=== PATIENT | male | born 1945 | race Caucasian/White ===

== ENCOUNTER 2017-12-11 08:11 | Inpatient (IN) | payer MEDICARE, MEDICAID ==
[~2017-12-11] VITALS: Ht 172.7 cm; Wt 98.4 kg
[2017-12-11] VITALS (8 sets, daily range): BP systolic 123–153; BP diastolic 75–91
[2017-12-11] MEDS ORDERED: SODIUM CHLORIDE 0.9% 1,000 ML IV ONE ×3 (08:34→10:11)
[2017-12-11 08:56] LABS: HEMATOCRIT. 41.2 % (42.0-52.0); HEMOGLOBIN. 13.5 g/dL (14.0-18.0); MEAN CORPUSCULAR HEMOGLOBIN 29.7 pg (28.0-32.0); MEAN CORPUSCULAR VOLUME 90.5 fL (80.0-94.0); MEAN PLATELET VOLUME 9.6 fl (7.4-10.4); PLATELET 120 x1000/uL (130-400); RED BLOOD CELL COUNT 4.56 mill/uL (4.7-6.1); RED CELL DISTRIBUTION WIDTH 15.5 % (11.6-14.6)
[2017-12-11] MEDS ORDERED: LEVETIRACETAM 1000MG/100ML 100 ML IV ONE (09:00)
[2017-12-11 09:02] LABS: CHLORIDE 113 mEq/L (98-107)
[2017-12-11 09:07] LABS: ETHANOL BLOOD < 10 mg/dL
[2017-12-11 09:13] LABS: CARBAMAZEPINE < 0.5 ug/mL (4-12); PHENOBARBITAL < 2.1 ug/mL (15.0-40.0)
[2017-12-11 09:52] LABS: CLARITY URINE TURBID (CLEAR); COLOR URINE ORANGE (YELLOW); KETONES URINE NEGATIVE (NEGATIVE); LEUKOCYTE ESTERASE URINE 3+ (NEGATIVE); NITRITE URINE POSITIVE (NEGATIVE); OCCULT BLOOD URINE 3+ (NEGATIVE); PROTEIN URINE 2+ (NEGATIVE); SPECIFIC GRAVITY URINE 1.015 (1.005-1.030)
[2017-12-11 09:59] LABS: PLATELET ESTIMATE SLIGHTLY DECREASED
[2017-12-11] MEDS ORDERED: LEVOFLOXACIN 750MG PREMIX 150 ML IV ONE (10:15)
[2017-12-11 10:17] LABS: *BENZODIAZEPINES SCREEN URINE NEGATIVE (NEGATIVE); *COCAINE SCREEN URINE NEGATIVE (NEGATIVE); METHADONE URINE SCREEN NEGATIVE (NEGATIVE)
[2017-12-11 10:18] LABS: *AMPHETAMINES SCREEN URINE NEGATIVE (NEGATIVE); *BARBITURATES SCREEN URINE NEGATIVE (NEGATIVE); CANNABINOID URINE SCREEN NEGATIVE (NEGATIVE); OPIATES URINE SCREEN NEGATIVE (NEGATIVE); PHENCYCLIDINE URINE SCREEN NEGATIVE (NEGATIVE)
[2017-12-11] MEDS ORDERED: ACETAMINOPHEN 650MG/20.3ML UDC GT PRN (12:30)
[2017-12-11] MEDS ORDERED: IPRATROPIUM/ALBUTEROL 0.5-3(2.5)MG/3ML NEB INH PRN (12:30)
[2017-12-11] MEDS ORDERED: CLONIDINE 0.1MG TABLET PO PRN (12:30)
[2017-12-11] MEDS ORDERED: BISACODYL 5MG TABLET PO PRN (12:30)
[2017-12-11] MEDS ORDERED: DIPHENHYDRAMINE 50MG/ML VIAL IV PRN (12:30)
[2017-12-11] MEDS ORDERED: PIPERACILLIN/TAZ 2.25G PREMIX 50 ML IV SCH (12:30)
[2017-12-11] MEDS ORDERED: BISACODYL 10MG SUPP PR PRN (12:30)
[2017-12-11] MEDS ORDERED: LEVETIRACETAM 500 MG in SODIUM CHLORIDE 0.9% 100 ML IV SCH (12:30)
[2017-12-11] MEDS ORDERED: NITROGLYCERIN 0.4MG TABLET SL SL PRN (12:30)
[2017-12-11] MEDS ORDERED: MAGNESIUM HYDROXIDE 400MG/5ML 30ML UDC PO PRN (12:30)
[2017-12-11] MEDS ORDERED: NA PHOS,M-B/NA PHOS,DI-BA ENEMA 118ML PR PRN (12:30)
[2017-12-11] MEDS ORDERED: HYDROCODONE/ACETAMINOPHEN 5/325MG TABLET PO PRN (12:30)
[2017-12-11] MEDS ORDERED: DEXTROSE 50% WATER 50ML SYRINGE IV PRN (12:30)
[2017-12-11] MEDS ORDERED: ACETAMINOPHEN 650MG SUPP PR PRN (12:30)
[2017-12-11] MEDS ORDERED: ONDANSETRON HCL 4MG/2ML VIAL IV PRN (12:30)
[2017-12-11] MEDS ORDERED: GUAIFENESIN 200MG/10ML SUGAR FREE UDC PO PRN (12:30)
[2017-12-11] MEDS ORDERED: HYDROCODONE/ACETAMINOPHEN 10/325MG TABLET PO PRN (12:30)
[2017-12-11] MEDS ORDERED: DOCUSATE SODIUM 100MG CAPSULE PO PRN (12:30)
[2017-12-11] MEDS ORDERED: LORAZEPAM 2MG/ML CPJ IV PRN ×2 (13:00→14:15)
[2017-12-11] MEDS ORDERED: MAGNESIUM/ALUMINUM HYDROXIDE/SIMETHICONE 30ML UDC PO PRN (13:00)
[2017-12-11] MEDS: INSULIN LISPRO 100 UNITS/ML SUBCUT SCH ×3 (13:00→21:00)
[2017-12-11 13:18] LABS: BG BASE EXCESS -5.2 mmol/L (-2.0-2.0); BG CARBOXYHEMOGLOBIN 0.4 % (0.5-1.5); BG DEOXYHEMOGLOBIN 0.4 % (0.0-5.0); BG FRACTION INSPIRED OXYGEN 100; BG HCO3 ACT 19.8 mmol/L (22.0-26.0); BG METHEMOGLOBIN 0.2 % (0.0-1.5); BG PCO2 36.9 mmHg (35.0-45.0); BG PH 7.348 (7.350-7.450); BG PO2 370.4 mmHg (75.0-100.0); BG SAMPLE SITE LEFT RADIAL; BG TOTAL HEMOGLOBIN 13.1 g/dL (12.0-18.0); BG VENT MODE MASK - NRB
[2017-12-11] MEDS: IPRATROPIUM/ALBUTEROL 0.5-3(2.5)MG/3ML NEB INH SCH ×2 (13:47→20:05)
[2017-12-11] MEDS ORDERED: LEVOFLOXACIN 500MG PREMIX 100 ML IV SCH (14:00)
[2017-12-11 15:32] LABS: D-DIMER 1.85 mg/L FEU (<0.50); PARTIAL THROMBOPLASTIN TIME 27.8 sec (23.4-31.0); PROTHROMBIN TIME 10.8 sec (9.4-11.6)
[2017-12-11 15:48] LABS: CREATINE KINASE MB FRACTION 1.8 ng/mL (0.5-3.6); T4 FREE 1.35 ng/dL (0.76-1.46)
[2017-12-11] MEDS: DEXT 5%/0.45% NACL 1000ML 1,000 ML IV SCH (16:38)
[2017-12-11] MEDS: ENOXAPARIN 40MG/0.4ML SYR SUBCUT SCH (16:38)
[2017-12-11] MEDS: AZTREONAM 1 G in DEXTROSE 5% WATER 50 ML IV SCH (16:39)
[2017-12-11] MEDS: SODIUM CHLORIDE 0.9% INJ 3ML FLUSH IVF SCH ×2 (16:40→21:03)
[2017-12-11] MEDS: BLOOD SUGAR DIAGNOSTIC STRIP TEST SCH ×2 (18:14→20:55)
[2017-12-11] MEDS: VALPROATE SODIUM 500 MG in SODIUM CHLORIDE 0.9% 100 ML IV SCH (18:18)
[2017-12-11] MEDS: BUDESONIDE 0.5MG/2ML NEB HHN SCH (20:06)
[2017-12-11] MEDS: LEVETIRACETAM 500MG PREMIX 100 ML IV SCH (20:55)
[2017-12-12] VITALS (12 sets, daily range): BP systolic 134–156; BP diastolic 72–100
[2017-12-12 00:32] LABS: CREATINE KINASE 36 IU/L (39-308)
[2017-12-12 00:33] LABS: CREATINE KINASE MB FRACTION 1.3 ng/mL (0.5-3.6)
[2017-12-12] MEDS: AZTREONAM 1 G in DEXTROSE 5% WATER 50 ML IV SCH ×2 (01:17→12:56)
[2017-12-12] MEDS: IPRATROPIUM/ALBUTEROL 0.5-3(2.5)MG/3ML NEB INH SCH ×4 (01:57→20:10)
[2017-12-12] MEDS: VALPROATE SODIUM 500 MG in SODIUM CHLORIDE 0.9% 100 ML IV SCH ×2 (06:11→18:11)
[2017-12-12] MEDS: SODIUM CHLORIDE 0.9% INJ 3ML FLUSH IVF SCH ×3 (06:11→21:22)
[2017-12-12 06:32] LABS: BASOPHILS % 0.3 % (0.0-2.0); EOSINOPHILS % 2.3 % (0.0-5.0); HEMATOCRIT. 36.1 % (42.0-52.0); HEMOGLOBIN. 11.8 g/dL (14.0-18.0); MEAN CORPUSCULAR VOLUME 88.7 fL (80.0-94.0); MEAN PLATELET VOLUME 10.1 fl (7.4-10.4); MONOCYTES % 8.9 % (2.0-8.0); NEUTROPHILS % 73.5 % (40.0-76.0); PLATELET 114 x1000/uL (130-400); RED BLOOD CELL COUNT 4.07 mill/uL (4.7-6.1); RED CELL DISTRIBUTION WIDTH 14.9 % (11.6-14.6)
[2017-12-12] MEDS: BLOOD SUGAR DIAGNOSTIC STRIP TEST SCH ×4 (07:30→21:12)
[2017-12-12] MEDS: INSULIN LISPRO 100 UNITS/ML SUBCUT SCH ×4 (08:00→21:00)
[2017-12-12 08:34] LABS: CHLORIDE 117 mEq/L (98-107)
[2017-12-12 08:44] LABS: HDL CHOLESTEROL 34 mg/dL (40-59); LDL CHOLESTEROL 64 mg/dL (5-100)
[2017-12-12] MEDS: AMIODARONE HCL 200 MG TABLET PO SCH (08:52)
[2017-12-12] MEDS: LEVETIRACETAM 500MG PREMIX 100 ML IV SCH (08:52)
[2017-12-12] MEDS: BUDESONIDE 0.5MG/2ML NEB HHN SCH ×2 (09:10→20:10)
[2017-12-12] MEDS: ENOXAPARIN 40MG/0.4ML SYR SUBCUT SCH (09:37)
[2017-12-12] MEDS: LEVOTHYROXINE SODIUM 75MCG TABLET PO SCH (09:37)
[2017-12-12] MEDS ORDERED: LEVOFLOXACIN 250MG PREMIX 50 ML IV SCH (14:00)
[2017-12-12] MEDS: DEXT 5%/0.45% NACL 1000ML 1,000 ML IV SCH (14:40)
[2017-12-12] MEDS: LEVETIRACETAM 500MG/5ML CUP PO SCH (21:13)
[2017-12-13] VITALS (10 sets, daily range): BP systolic 117–151; BP diastolic 64–92
[2017-12-13] MEDS: IPRATROPIUM/ALBUTEROL 0.5-3(2.5)MG/3ML NEB INH SCH ×3 (01:55→13:38)
[2017-12-13] MEDS: AZTREONAM 1 G in DEXTROSE 5% WATER 50 ML IV SCH (02:43)
[2017-12-13] MEDS: SODIUM CHLORIDE 0.9% INJ 3ML FLUSH IVF SCH ×2 (06:18→14:00)
[2017-12-13] MEDS: ACETAMINOPHEN 325MG TABLET PO PRN ×2 (06:19→08:53)
[2017-12-13] MEDS ORDERED: PULM50 HHN (07:19)
[2017-12-13] MEDS ORDERED: AMI2 PO (07:19)
[2017-12-13] MEDS ORDERED: LEVO75TA7 PO (07:20)
[2017-12-13] MEDS ORDERED: VALP250S PO (07:20)
[2017-12-13] MEDS ORDERED: KEPP500 PO (07:20)
[2017-12-13] MEDS ORDERED: LEVO500T2 PO (07:21)
[2017-12-13] MEDS: INSULIN LISPRO 100 UNITS/ML SUBCUT SCH ×3 (07:43→17:33)
[2017-12-13] MEDS: BLOOD SUGAR DIAGNOSTIC STRIP TEST SCH ×3 (07:43→17:33)
[2017-12-13] MEDS: AMIODARONE HCL 200 MG TABLET PO SCH (08:53)
[2017-12-13] MEDS: VALPROATE SODIUM 250MG/5ML UDC PO SCH ×2 (08:53→17:47)
[2017-12-13] MEDS: LEVETIRACETAM 500MG/5ML CUP PO SCH (08:53)
[2017-12-13] MEDS: ENOXAPARIN 40MG/0.4ML SYR SUBCUT SCH (08:54)
[2017-12-13] MEDS: LEVOTHYROXINE SODIUM 75MCG TABLET PO SCH (08:55)
[2017-12-13] MEDS: BUDESONIDE 0.5MG/2ML NEB HHN SCH (09:14)
[2017-12-13 12:45] LABS: BG BASE EXCESS -1.9 mmol/L (-2.0-2.0); BG DEOXYHEMOGLOBIN 17.7 % (0.0-5.0); BG FRACTION INSPIRED OXYGEN 21; BG HCO3 ACT 23.6 mmol/L (22.0-26.0); BG METHEMOGLOBIN 0.2 % (0.0-1.5); BG OXYGEN SATURATION 82.1 % (92.0-98.5); BG OXYHEMOGLOBIN 81.1 % (94.0-97.0); BG PCO2 43.1 mmHg (35.0-45.0); BG PH 7.357 (7.350-7.450); BG PO2 43.1 mmHg (75.0-100.0); BG SAMPLE SITE LEFT RADIAL; BG VENT MODE ROOM AIR
[2017-12-13] MEDS ORDERED: SULFAMETHOXAZOLE/TRIMETHOPRIM 400/80MG TAB PO SCH (13:00)
[2017-12-13] MEDS ORDERED: SULF1TAB48 PO (20:03)
== END 2017-12-13 18:30 | DRG 871 ==
LOC: ER 08:26 → 6WST 10:20 → EDBEDREQ 10:23 → ENRESERV 10:32 → 5EST 12:18
PROVIDERS: ADMIT Family Medicine; ATTEND Family Medicine
PROC: 4A00X4Z Measurement of Central Nervous Electrical Activity, External Approach (ICD-10-PCS; principal; 2017-12-13)
DX: A41.9 Sepsis, unspecified organism (principal); J96.00 Acute respiratory failure, unspecified whether with hypoxia or hypercapnia; E11.22 Type 2 diabetes mellitus with diabetic chronic kidney disease; G35 Multiple sclerosis; I48.2 Chronic atrial fibrillation; J44.1 Chronic obstructive pulmonary disease with (acute) exacerbation; E66.01 Morbid (severe) obesity due to excess calories; F20.9 Schizophrenia, unspecified; N39.0 Urinary tract infection, site not specified; K21.9 Gastro-esophageal reflux disease without esophagitis; D64.9 Anemia, unspecified; N18.9 Chronic kidney disease, unspecified; E78.5 Hyperlipidemia, unspecified; E03.9 Hypothyroidism, unspecified; M19.90 Unspecified osteoarthritis, unspecified site; E78.00 Pure hypercholesterolemia, unspecified; G89.29 Other chronic pain; M10.9 Gout, unspecified; N40.0 Benign prostatic hyperplasia without lower urinary tract symptoms; I12.9 Hypertensive chronic kidney disease with stage 1 through stage 4 chronic kidney disease, or unspecified chronic kidney disease; F31.9 Bipolar disorder, unspecified; G40.909 Epilepsy, unspecified, not intractable, without status epilepticus; Z99.3 Dependence on wheelchair; Z79.899 Other long term (current) drug therapy; Z74.01 Bed confinement status; Z88.0 Allergy status to penicillin; Z88.6 Allergy status to analgesic agent; Z88.8 Allergy status to other drugs, medicaments and biological substances; Z68.33 Body mass index [BMI] 33.0-33.9, adult
CPT/HCPCS: 36415; 36600; 51702; 70450; 71045; 80053; 80061; 80156; 80165; 80184; 80185; 80305; 81003; 82375; 82550; 82553; 82805; 82962; 83036; 83605; 84439; 84443; 84481; 84484; 85025; 85379; 85610; 85730; 87040; 87077; 87086; 87186; 93970; 94640; 96361; 96374; 99285; G0482; J1200; J1650; J1953; J1956; J3490; J7030; J7050; J7060; J7620; J7626; A4315